=== PATIENT | female | born 1995 | race African-American/Black ===

== ENCOUNTER 2019-09-17 15:52 | Observation (INO) | payer BC, SELFPAY ==
[2019-09-17] VITALS (9 sets, daily range): BP systolic 107–123; BP diastolic 72–91; PULSE 69–89; TEMP 36.2; BMI 27.3
--- NOTE | ~2019-09-17 | US_ITS ---
EXAMINATION: US OB BPP wo non-stress EXAM DATE: 09/17/2019 18:00 INDICATION: Elevated blood pressure. labor. Third trimester. TECHNIQUE: Pelvic obstetrical transabdominal sonogram was performed by a technologist. There are mu ltiple grayscale and Doppler images available for interpretation. There are no earlier studies of th is gestation for comparison. FINDINGS: There is a single fetus identified in vertex presentation with a heart rate of 142 beats pe r minute. The placenta is located in the posterior position. There is no sonographic evidence of ret roplacental hemorrhage identified. BIOPHYSICAL PROFILE (performed by the technologist) breathing (30 sec sustained breathing in 30 minutes): 2 out of 2 movement (3 gross body movements in 30 minutes): 2 out of 2 tone (one episode of wgjbfwy-xiozaytri-vhxlvsq limb movement): 2 out of 2 Amniotic fluid pocket (2 cm): 2 out of 2 Total score: 8 out of 8 IMPRESSION: 1. Single fetus with heart rate of 142 bpm. 2. Normal biophysical profile score of 8 out of 8. Reviewed, dictated and finalized at location A.
--- NOTE | 2019-09-17 15:52 | OBADM ---
This patient, Sanaz Elias, admitted to the OB room OB Post 113 for observation. Patient/family oriented to hospital policies and general routines including ID bracelet, bed and alarms, visiting hours, pain management, procedures, bathroom and other care routines, personal items, smoking policy, room service/diet, and visiting hours. Patient/Family are encouraged to report perceived risks to care and to ask questions if they do not understand what they are told or what they should do.
[2019-09-17] MEDS: NIFEdipine 10 MG CAPSULE PO ×2 (17:44→23:44)
--- NOTE | 2019-09-17 18:22 | PC.NURSE ---
Pt returned from ultrasound. Placed back on monitors. States cramping has decreased in frequency and intensity.
[2019-09-17] MEDS: BETAMETHASONE SOD PHOS/ACETATE 30 MG/5 ML VIAL 12 MG IM (18:23)
[2019-09-17] MEDS: LACTATED RINGERS 1,000 ML 999 ML IV CONT (20:37)
[2019-09-17] MEDS: AMPICILLIN 2 GM/NS 100 ML 2 GM/100 ML BAG IVPB (20:38)
[2019-09-17] MEDS: TERBUTALINE SULFATE 1 MG/ML VIAL 0.25 MG SUB-Q (21:14)
[2019-09-17] MEDS: MORPHINE SULFATE 10 MG/ML AMP 5 MG IM (23:44)
[2019-09-17] MEDS: LACTATED RINGERS 1,000 ML 125 ML IV CONT (23:45)
--- NOTE | 2019-09-18 07:57 | PM.OBTRLD ---
OB - Triage/Final Diagnosis Visit Information Date of evaluation: 09/17/19 Reason for evaluation: other Comments/Additional reasons for admission: Sanaz is a 24yo @ 35.6wks who presented to clinic on 09/17/19 with complaints of vaginal bleeding and loss of mucus plug after having intercourse. Pt reports heavy vaginal bleeding, like a period in the morning. It lightened throughout the day to mild spotting to stopping. She was seen in clinic at ~2p where minimal bleeding was noted. She reported good movement but cramping. In clinic, heart tones were obtained at 130-140's, but 2 palpable contractions were noted in less than 10 minutes, and on cervical exam she was found to be 3/50/-3. She was sent to L&D for r/o PTL, ANCS, BPP. Evaluation Baseline heart rate: 140 Variability: Average (6-10) monitor accelerations: Present monitor decelerations: None Cervical dilation (cm): 3 Cervical effacement (%): 50 station: -3 Vital signs: Vital Signs - 24 hr 09/17/19 16:30 09/17/19 16:45 09/17/19 17:00 Temperature Pulse Rate 76 78 69 Blood Pressure 121/84 121/91 H 123/76 09/17/19 17:15 09/17/19 17:30 09/17/19 18:22 Temperature Pulse Rate 79 87 79 Blood Pressure 115/80 118/80 116/78 09/17/19 19:00 09/17/19 23:43 09/17/19 23:53 Temperature 36.2 C L Pulse Rate 75 89 Blood Pressure 107/72 122/74 Comments: BPP was 8/8 During the evening of 09/17/19 she continued to contract and was given Procardia and Betamethasone. During nurse change coordinator, her cervix was re-examined (after 4 hours) and she was called 4/50/-3. A dose of ampillin was given as pt is GBS + and . She was noted to continue to contract, so a dose of terb was given. After 2 hours, she was re-examined and found to be unchanged, but continued to have contractions, rated 5-6/10. Decision was made to continue to monitor overnight. An additional dose of Procardia was given at 2300 (6 hrs after initial dose) and Morphine 5mg IM to allow the patient to sleep. This morning, pt denies cramping/contractions/pain. She has not had any further bleeding. monitoring was reassuring overnight. Cervical exam performed by myself was unchanged from the clinic exam (/). Pt was counseled on pelvic rest and strict return precautions. [facility] 1630 for her second dose of Betamethasone and f/u in clinic in 1 week. Final Diagnosis (1) contractions: Code(s): O47.9 - False labor, unspecified Status: Acute (2) Vaginal bleeding during : Code(s): O46.90 - Antepartum hemorrhage, unspecified, unspecified trimester Status: Acute
[2019-09-18 08:04] VITALS: TEMP 36.9
[2019-09-18 08:06] VITALS: BP 109/54; PULSE 89
--- NOTE | 2019-09-18 09:02 | PC.NURSE ---
0725- talked with patient about going home and coming back tonight at 0630 for her second dose of celestone and to follow up in the office next week.
== END 2019-09-18 08:30 | disposition home or self-care (01) ==
PROVIDERS: Admitting Provider Obstetrics & Gynecology; PCP Nurse Practitioner; Visit Provider Obstetrics & Gynecology
DX: O47.03 False labor before 37 completed weeks of gestation, third trimester (principal); O46.93 Antepartum hemorrhage, unspecified, third trimester; O99.820 Streptococcus B carrier state complicating pregnancy; Z3A.35 35 weeks gestation of pregnancy
CPT/HCPCS: 76819; 96365; 96372; A9270; G0378; G0379; J0290; J0702; J2270; J3105; J7120

== ENCOUNTER 2019-09-18 18:16 | Outpatient (CLI) | payer BC, SELFPAY ==
[2019-09-18] MEDS: BETAMETHASONE SOD PHOS/ACETATE 30 MG/5 ML VIAL 12 MG IM (18:33)
== END 2019-09-18 18:17 | disposition home or self-care (01) ==
LOC: ANHOBOP 18:22
PROVIDERS: PCP Nurse Practitioner; Visit Provider Obstetrics & Gynecology
DX: Z36.89 Encounter for other specified antenatal screening (principal)
CPT/HCPCS: 96372; J0702

== ENCOUNTER 2019-09-20 09:04 | Inpatient (IN) | payer BC, SELFPAY ==
[2019-09-20] VITALS (59 sets, daily range): BP systolic 100–170; BP diastolic 42–93; PULSE 48–149; TEMP 36.3–36.9; O2SAT 100; BMI 27.3
[2019-09-20 09:52] LABS: Basophils Percent Auto 0.1 % (0.2-1.2); Eosinophils Percent Auto 0.1 % (0-4.4); Hematocrit 34.1 % (37.0-47.0); Hemoglobin 11.3 g/dL (12.0-15.0); Immature Granulocyte Absolute 0.08 K/mm3 (0.00-0.031); Immature Granulocyte Percent A 0.8 % (0-0.5); Lymphocytes Absolute Auto 2.05 K/mm3 (0.9-3.2); Mean Corpuscular HGB Conc 33.1 g/dl (32-36); Mean Corpuscular Hemoglobin 31.2 pg (26-34); Mean Corpuscular Volume 94.2 fl (80-100); Mean Platelet Volume 12.3 fl (7.4-10.4); Monocytes Absolute Auto 1.1 K/mm3 (0.1-0.6); Monocytes Percent Auto 10.8 % (2.6-8.5); Neutrophils Percent Auto 68.2 % (45.5-73.1); Platelet Count Result 189 k/mm3 (150-375); Red Blood Count 3.62 M/mm3 (4.2-5.4); Red Cell Distribution Width 13.9 % (11.5-14.5); White Blood Count 10.3 K/mm3 (4.5-10.0)
--- NOTE | 2019-09-20 10:05 | PM.IMHP ---
H&P: HPI History of Present Illness Chief complaint: Leaking Narrative: Sanaz Elias is a 24 yo @ 36.2 weeks who presented with rupture of membranes @ 0830, clear. She reported contractions last night, but they spontaneously resolved. She denies any further vaginal bleeding. She was recently admitted in observation overnight 09/17/19 for significant vaginal bleeding after intercourse and was found to be 3cm dilated. She was monitored overnight with no further bleeding or cervical dilation occurred. She was augustine and was given tocolysis for ANCS (given 09/16 and 09/17). Her is also complicated by GBS +, late transfer of care, + MJ use, and elevated glucola but normal 3hr OGTT. Review of Systems Constitutional: Constitutional: Denies body ache(s) and Denies chills Eyes: Eyes: Denies blurry vision Cardiovascular: Cardiovascular: Denies chest pain and Denies palpitations Respiratory: Respiratory: Denies cough and Denies dyspnea Gastrointestinal: Gastrointestinal: Denies nausea and Denies vomiting Genitourinary: Genitourinary: Reports vaginal discharge Neurologic: Denies headache(s) Psychiatric: Psychiatric: Denies anxiety REPLACED BY [facility] Family History Family History Mother Hypertension Social History Social History Substance use: former Gender identity (if verbalized by the patient): Female Spiritual care concerns: No Meds Home Medications and Allergies Home Medications Medication Instructions Recorded Confirmed Type PNV cmb#95-ferrous fumarate-FA 1 tablet PO DAILY 09/17/19 09/19/19 History [] sertraline 25 mg PO DAILY 09/19/19 09/19/19 History Allergies Allergy/AdvReac Type Severity Reaction Status Date / Time No Known Allergies Allergy Verified 09/17/19 17:35 Exam Const: General: comfortable and no acute distress Resp: Effort & Inspection: normal respiratory effort Cardio: Rate: regular rate : Other: FHT's: 140's/ mod elijah/ + accels/ no decels - category 1 TOCO: ctx's q 5-6min Membranes: SROM, clear 0830 Cervix: 4/50/-3 Skin: General skin exam: normal color Neuro: Cognition (Neuro): normal cognition Speech: normal speech Psych: Affect: normal affect H&P: Results Labs Labs: Short CBC 09/20/19 Range/Units 09:47 WBC 10.3 H (4.5-10.0) K/mm3 Hgb 11.3 L (12.0-15.0) g/dL Hct 34.1 L (37.0-47.0) % Plt Count 189 (150-375) k/mm3 Assessment and Plan Assessment and plan (1) premature rupture of membranes: Qualifiers: PROM onset of labor timing: onset of labor within 24 hours of rupture Qualified Code(s): O42.019 - premature rupture of membranes, onset of labor within 24 hours of rupture, unspecified trimester Code(s): O42.919 - premature rupture of membranes, unspecified as to length of time between rupture and onset of labor, unspecified trimester Status: Acute (2) Positive GBS test: Code(s): B95.1 - Streptococcus, group B, as the cause of diseases classified elsewhere Status: Acute Additional Plan - Will admit to L&D for augmentation of PPROM as she is >34wks - GBS +; will start ampicillin now - Will begin augmenting with pitocin to obtain contractions q2-3min - Continuous monitoring; currently category 1 - Anesthesia consult for epidural
[2019-09-20] MEDS: AMPICILLIN 2 GM/NS 100 ML 2 GM/100 ML BAG IVPB (10:30)
[2019-09-20] MEDS: LACTATED RINGERS 1,000 ML 125 ML IV CONT ×3 (10:31→12:12)
--- NOTE | 2019-09-20 11:22 | LDADM ---
This patient, Sanaz Elias, was admitted to Labor/Delivery/Recovery 106 on 09/20/19 at 09:04. Plans for labor, pain management and were discussed with patient. Patient/family oriented to hospital policies and general routines including ID bracelet, bed and alarms, visiting hours, pain management, procedures, bathroom and other care routines, personal items, smoking policy, room service/diet and guest tray routines, infant security routines, and visiting hours. Patient/Family are encouraged to report perceived risks to care and to ask questions if they do not understand what they are told or what they should do. See OBIX for further documentation.
[2019-09-20] MEDS: AMPICILLIN 1 GM/NS 50 ML 1 GM/50 ML BAG IVPB ×2 (14:33→19:14)
[2019-09-20] MEDS: OXYTOCIN 30 UNITS/NS 500 ML 30 UNITS/500 ML BAG 6 UNITS IV CONT (14:35)
--- NOTE | 2019-09-20 21:07 | PM.OBPRVD ---
OB - Delivery Note Procedure Delivery date: 09/20/19 Procedure: Patient progressed to complete dilation with strong desire to push. with good maternal effort she delivered the head over intact perineum. a nuchal cord was palpated but delivered through. the infant's shoulders and body delivered without complications. the was immediately placed skin to skin. the mouth and nose were bulb suctioned, and the infant had spontaneous cry. the umbilical cord was then clamped and cut. the segment of cord was collected for cord gases. and the remaining cord blood was collected for typing. with Pitocin running and gentle traction on the umbilical cord the placenta delivered without complications. a bimanual exam was performed and the fundus was palpated firm. the cervix vagina and perineum were inspected. a right-sided periurethral laceration was noted and bleeding. a catheter was placed within the urethra and the bladder was fully drained. 3 0 Vicryl was used to repair the laceration and good hemostasis was noted. in the fundus was once again palpated firm with minimal bleeding noted. sponge lap needle and instrument counts were correct at the end of the procedure. mom and baby were left bonding skin to skin in the birthing suite in a stable condition. events: Premature Rupture of Membrane Delivery augmentation: pitocin Delivery monitor: external FHT and internal uterine Route of delivery: Laceration description: Periurethral - 1st Degree (right) Delivery repair: vicryl Specimen: Yes Estimated blood loss (mL): 100 Anesthesia type: Epidural Disposition: floor [place] Baby Date of : 09/20/19 Time of : 20:47 Weeks of gestation at delivery: 36 gender: Male Weight (pounds): 6 Weight (ounces): 3 presentation: vertex position: Right Occiput Anterior Placenta delivery description: Expressed cord vessel description: 3 Vessels and Nuchal Cord score one minute: 9 score five minutes: 9
[2019-09-20] MEDS: OXYTOCIN 30 UNITS/NS 500 ML 30 UNITS/500 ML BAG 125 UNITS IV CONT (21:32)
[2019-09-21 00:15] VITALS: BP 148/93; PULSE 51; RESP 18; TEMP 37.2
[2019-09-21] MEDS: IBUPROFEN 600 MG TABLET PO ×2 (00:49→09:48)
--- NOTE | 2019-09-21 02:09 | PC.NURSE ---
Patient transferred to post room #290 via wheelchair. Support person present. Oriented to unit, room, information board, rooming in, admission packet and security measures. Patient verbalizes understanding.
[2019-09-21 06:05] LABS: Hematocrit 33.3 % (37.0-47.0)
[2019-09-21 08:50] VITALS: BP 136/62; PULSE 65; RESP 16; TEMP 37.1; O2SAT 100
[2019-09-21] MEDS: SERTRALINE HCL 25 MG TABLET PO (09:47)
[2019-09-21] MEDS: MULTIVIT/MIN/PREN/FOL AC/IRON TABLET 1 TAB PO (09:47)
[2019-09-21 10:00] LABS: Rapid Plasma Reagin Non-Reactive (NonReactive)
--- NOTE | 2019-09-21 11:30 | WPDANLDPN2 ---
Anes-Prog Note L&D Date/Time: 09/21/19 11:30 Comfortable throughout: labor and delivery Neuraxial method: epidural Epidural/Spinal procedure site: clean & non-tender Neuro status: Neuro function grossly intact. Cardiovascular status: normal Respiratory status: normal Airway patency: baseline Mental status: baseline Post-Op hydration status: normal Vital Signs: Last Vital Signs Temp 37.1 C 09/21/19 08:50 Pulse 65 09/21/19 08:50 Resp 16 09/21/19 08:50 BP 136/62 09/21/19 08:50 Pulse Ox 100 09/21/19 08:50 I/O: Intake & Output 09/20/19 09/21/19 09/21/19 23:59 07:59 15:59 Intake Total 500 Output Total 250 Balance 500 -250 Post-procedural complaints: none Patient feedback: Patient satisfied with anesthetic care.
--- NOTE | 2019-09-21 13:04 | PM.OBPNVD ---
OB - PN: Subj Subjective Date/time seen: 09/21/19 13:04 Shaun is a 24yo now [id number] s/p , PPD#1 She is doing well. Her pain is controlled with the medications. She is ambulating w/o signs of anemia. her bleeding is decreasing. She is tolerating regular diet w/o n/v. She is breast and bottle feeding. She is desiring that her son gets circumcised today. Overnight she had persistently mild range blood pressures; PEC w/u is pending. She denies CORDOVA, vision changes, CP or SOB. OB - PN: Obj Data Labs CBC & Chem 7: 09/21/19 04:54 Labs: Laboratory Results - last 24 hr 09/20/19 09/21/19 09:47 04:54 Hgb 11.0 L Hct 33.3 L RPR Non-reactive OB - PN A/P Assessment and Plan (1) delivery: Code(s): O60.10X0 - labor with delivery, unspecified trimester, not applicable or unspecified Status: Acute (2) Gestational hypertension: Qualifiers: Trimester: unspecified trimester Qualified Code(s): O13.9 - Gestational [-induced] hypertension without significant proteinuria, unspecified trimester Code(s): O13.9 - Gestational [-induced] hypertension without significant proteinuria, unspecified trimester Status: Acute Plan day: 1 Comments: - meeting all milestones - mild range BP's overnight meeting criteria for gestational hypertension; awaiting p/c ratio (if elevated, would be PEC w/o SF) - BP's in mild to normal range; if persistently SBP >150 or DBP >100 would then start antihypertensives--- otherwise, pt asymptomatic and will continue to monitor - discussed pain/fever/bleeding/htn return precautions when discharged home. - pelvic rest discussed - pt to f/u in 1-2 weeks for blood pressure check. - take medications as prescribed Time Spent With Patient Time: Total time spent is greater than 50% in coordination of care (as documented) at patient's floor/unit and/or counseling patient: Review of Systems Constitutional: Constitutional: Denies body ache(s), Denies chills and Reports fatigue Cardiovascular: Cardiovascular: Denies rapid heart rate Respiratory: Respiratory: Denies cough and Denies dyspnea Gastrointestinal: Gastrointestinal: Denies abdominal pain, Denies nausea and Denies vomiting Genitourinary: Genitourinary: Reports as per HPI Integumentary/Breasts: Skin/Breast: Reports as per HPI Neurologic: Denies headache(s) Exam Const: General: comfortable, no acute distress, alert and awake Resp: Effort & Inspection: normal respiratory effort Auscultation: clear to auscultation bilaterally Cardio: Rate: regular rate GI: Auscultation: normal bowel sounds Other: non-distended, soft, appropriately tender, fundus firm below umbilicus Psych: Appearance: grossly normal Affect: normal affect Attitude: cooperative
[2019-09-21 15:56] LABS: Alanine Aminotransferase 18 U/L (4-35); Alkaline Phosphatase 194 U/L (38-126); Aspartate Amino Transferase 25 U/L (14-36); Bilirubin,Total 0.3 mg/dL (0.2-1.3); Blood Urea Nitrogen 5 mg/dL (7-17); Calcium 8.5 mg/dL (8.4-10.2); Carbon Dioxide 29 mmol/L (22-30); Chloride 106 mmol/L (98-107); Estimated CRCL calculation 96 ml/min; Estimated Glomerular Filt Rate > 60; Glucose 78 mg/dL (65-105); Potassium 3.7 mmol/L (3.4-5.0); Sodium 137 mmol/L (137-145); Uric Acid 5.4 mg/dL (2.5-7.5)
--- NOTE | 2019-09-21 16:00 | PC.NURSE ---
Consulted with patient, mother reports infant is sleepy and not latching. Mother will then bottle feed. Mother would like to initiate pumping. Reviewed sleepiness is normal and stimulation to wake and during feedings with assist with keep awake and nursing effectively for increased intake and maintaining deep latch. is in open crib with crying and feeding cues noted. Reviewed feeding cues, frequencies, duration of feedings, feeding elimination flow sheet, and signs of adequate intake. Demonstrated stimulation techniques to wake infant for feeding. Assisted with to breast. Reviewed positioning/alignment in cross cradle, holding breast in U hold and guided asymmetrical latch on. Several attempts before infant was able to latch correctly. nursed eagerly, with steady draws and frequent swallowing noted. Reviewed signs of a correct latch, effective nursing and suck swallow ratio. was able to maintain latch without discomfort to mother. Nipple care reviewed. Instructed mother to call out for RN assistance if she is unable to latch infant for feeding or she has discomfort with nursing. Instructed feeding should be initiated three hours from start of last feeding or if feeding cues are noted before. Mother voiced understanding of information shared. Mother would like to attempt infant at breast and wait to initiate pumping at this time.
--- NOTE | 2019-09-21 17:27 | PC.NURSE ---
Pt states when she voided she was unable to collect a clean catch urine specimen.
--- NOTE | 2019-09-21 17:59 | PC.NURSE ---
Clean catch urine specimen collected per pt. Sent to lab.
[2019-09-21 18:03] LABS: Creatinine Urine 24.7 mg/dL; Total Protein Urine Random 13 mg/dL
[2019-09-21 20:40] VITALS: BP 146/84; PULSE 65; RESP 18; TEMP 36.4; O2SAT 100
--- NOTE | 2019-09-21 20:45 | PC.NURSE ---
Patient viewed the discharge video Mother & Baby Care, The First Two Weeks . Patient was given the opportunity and encouraged to ask questions. Patient verbalized understanding of information shared and has been given the mother/baby guide for home reference.
[2019-09-21] MEDS: TETANUS,DIPHTHERIA,AC PERTUSSIS ADULT (0.5 ML) BOOSTRIX IM (21:26)
[2019-09-22] MEDS: IBUPROFEN 600 MG TABLET PO ×2 (01:49→10:20)
[2019-09-22 08:20] VITALS: BP 151/82; PULSE 50; RESP 18; TEMP 37.2
[2019-09-22] MEDS: DOCUSATE SODIUM 100 MG CAPSULE PO (10:20)
[2019-09-22] MEDS: MULTIVIT/MIN/PREN/FOL AC/IRON TABLET 1 TAB PO (10:21)
[2019-09-22] MEDS: SERTRALINE HCL 25 MG TABLET PO (10:21)
[2019-09-22 10:30] VITALS: BP 111/68; PULSE 65
--- NOTE | 2019-09-22 11:52 | P.DS_ITS ---
DS: Diagnosis Admitting Diagnosis Admitting Diagnosis: premature rupture of membranes, onset of labor with in 24 hours of rupture, unspecified trimester OB - DS: Summary OB Procedures : None OB Procedures Intrapartum: Spontaneous Vag Delivery OB Procedures: : None Time Spent with Patient Time attestation: Total time spent providing and/or coordinating discharge services: DS: Data Data Completed and Pending Pending studies at discharge: Pending at discharge 09/20/19 20:47 Surgical [PTH] Routine Labs on day of discharge: Labs from last 24 hours 09/21/19 09/21/19 17:30 15:15 Sodium 137 Potassium 3.7 Chloride 106 Carbon Dioxide 29 BUN 5 L Creatinine 0.70 Estim Creat Clear Calc 96 Estimated GFR > 60 Glucose 78 Uric Acid 5.4 Calcium 8.5 Total Bilirubin 0.3 AST 25 ALT 18 Alkaline Phosphatase 194 H Total Protein 6.0 L Albumin 3.0 L U Random Total Protein 13 Urine Creatinine 24.7 Discharge Plan Discharge Attending physician on discharge: Oxana Ward Discharging Clinician: Oxana Ward Anticipated Discharge Date/Time: 09/22/19 16:00 Patient Disposition: Home, Self-Care Activity: pelvic rest Diet: regular Patient Instructions: Antibiotic Form Stand Alone Forms: General Discharge Information Follow-up/Referrals: Oxana Ward MD [Physician] - 1 Week Discharge Medications: New acetaminophen [Mapap (acetaminophen)] 325 mg Tablet 650 mg PO Q6H PRN (Reason: Mild Pain (1-3) Or Headache) 10 Days Qty: 30 RF: 0 ibuprofen 600 mg Tablet 600 mg PO Q6H PRN (Reason: Cramping) 10 Days Qty: 40 RF: 0 Continued sertraline 25 mg Tablet 25 mg PO DAILY 30 Days Qty: 30 RF: 3 PNV cmb#95-ferrous fumarate-FA [] 28 mg iron- 800 mcg Tablet 1 tablet PO DAILY 30 Days Qty: 30 RF: 3 Date of admission: 09/20/19 09:04 Primary Care Provider: RamonAmita Admitting Provider: Oxana Ward Attending physician on admission: Oxana Ward Condition: Stable
== END 2019-09-22 12:37 | disposition home or self-care (01) | DRG 560 ==
LOC: ANHLDR 11:34 → ANHOB2 23:55
PROVIDERS: Admitting Provider Obstetrics & Gynecology; PCP Nurse Practitioner; Visit Provider Obstetrics & Gynecology
DX: O42.913 Preterm premature rupture of membranes, unspecified as to length of time between rupture and onset of labor, third trimester (principal); Z37.0 Single live birth; Z3A.36 36 weeks gestation of pregnancy; O60.14X0 Preterm labor third trimester with preterm delivery third trimester, not applicable or unspecified; O99.824 Streptococcus B carrier state complicating childbirth; O99.324 Drug use complicating childbirth; F12.90 Cannabis use, unspecified, uncomplicated; O13.4 Gestational [pregnancy-induced] hypertension without significant proteinuria, complicating childbirth; O71.82 Other specified trauma to perineum and vulva; O99.344 Other mental disorders complicating childbirth; F41.9 Anxiety disorder, unspecified
CPT/HCPCS: 36415; 80053; 82570; 84156; 84550; 85014; 85018; 85025; 86592; 86850; 86900; 86901; 88307; 90715; A9270; J0290; J2590; J2795; J7120